=== PATIENT | male | born 1995 | race Caucasian/White ===

== ENCOUNTER 2017-12-06 10:28 | Day surgery (SDC) | payer BC ==
[~2017-12-06 10:28] MED LIST: CEFAZOLIN 1 GM INJ; DEXAMETHASONE 4 MG/ML 1 ML INJ; LIDOCAINE 2% (SDV) 5 ML INJ; METOCLOPRAMIDE 10 MG INJ; ONDANSETRON 4 MG INJ
[2017-12-06] MEDS ORDERED: MIDAZOLAM 1 MG/ML 2 ML INJ (12:22)
[2017-12-06] MEDS ORDERED: FENTAnyl 50 MCG/ML VIAL (12:25)
[2017-12-06] MEDS ORDERED: PROPOFOL 20 ML (12:25)
[2017-12-06] MEDS ORDERED: ONDANSETRON 4 MG INJ IV (13:30)
[2017-12-06] MEDS ORDERED: MEPERIDINE 25 MG INJ IV (13:30)
[2017-12-06] MEDS ORDERED: KETOROLAC 30 MG INJ IV (13:30)
[2017-12-06] MEDS ORDERED: HYDROmorphONE 1 MG/5 ML IV SYRINGE IV (13:30)
[2017-12-06] MEDS ORDERED: FENTAnyl 50 MCG/ML VIAL IV (13:30)
[2017-12-06] MEDS ORDERED: DIPHENHYDRAMINE 50 MG INJ IV (13:30)
[2017-12-06] MEDS: HYDROmorphONE 1 MG/5 ML IV SYRINGE IV (14:18)
[2017-12-06] MEDS: HYDROCODONE/APAP (5/325) TAB PO (14:28)
== END 2017-12-06 15:15 | disposition home or self-care (01) ==
LOC: SDS 10:28
DX: A63.0 Anogenital (venereal) warts (principal)
CPT/HCPCS: 11422; 88305